=== PATIENT | female | born 1980 | race Hispanic/Latino ===

== ENCOUNTER 2020-12-24 07:29 | Day surgery (SDC) | payer OTHER ==
[2020-12-20 14:10] LABS: BASOPHILS % (AUTO) 0.8 % (0.0-5.0); EOSINOPHILS % (AUTO) 16.9 % (0.0-8.0); HEMATOCRIT 34.4 % (36-48); LYMPHOCYTES % (AUTO) 28.4 % (21.0-51.0); MEAN CORPUSCULAR HEMOGLOBIN 25.9 pg (27.0-33.0); MEAN CORPUSCULAR HGB CONC 31.4 g/dL (32.0-36.0); MEAN CORPUSCULAR VOLUME 82.5 fL (79-99); MONOCYTES % (AUTO) 5.4 % (3.0-13.0); NEUTROPHILS % (AUTO) 48.2 % (40.0-77.0); PLATELET COUNT (AUTO) 393 K/uL (130-400); RED BLOOD CELL COUNT(AUTO) 4.17 MIL/uL (4.00-5.50); RED CELL DISTRIBUTION WIDTH 16.7 % (11.0-15.5); WHITE BLOOD COUNT (AUTO) 6.5 K/uL (4.8-10.8)
[2020-12-20 14:13] VITALS: BP 125/69
[2020-12-20 14:15] LABS: CREATININE 0.7 mg/dL (0.5-1.5); POTASSIUM 3.9 mmol/L (3.5-5.1)
[~2020-12-24] VITALS: Ht 165.1 cm; Wt 91.4 kg
[2020-12-24] VITALS (18 sets, daily range): BP systolic 103–116; BP diastolic 56–83
[~2020-12-24 07:29] MED LIST: ACET1TAB25 PO; AZEL137S11 NS; CEFAZOLIN SODIUM 1 GM VIAL IVP SCH; CETI-89 PO; HYDR-4030 PO; IBUP-2077 PO; SERT-439 PO
[2020-12-24] MEDS ORDERED: LACTATED RINGERS 1000ML 1,000 ML IV ONE (08:27)
[2020-12-24] MEDS ORDERED: LIDOCAINE PF 100MG/5ML (2%) SYRINGE 5ML ONE (09:47)
[2020-12-24] MEDS ORDERED: FENTANYL CITRATE PF 50 MCG/1 ML 2ML VIAL ONE (09:48)
[2020-12-24] MEDS ORDERED: PROPOFOL 10 MG/ML 20ML VIAL IV ONE (09:48)
[2020-12-24] MEDS ORDERED: SUCCINYLCHOLINE CHLORIDE 20 MG/ML 10 ML VIAL ONE (10:24)
[2020-12-24] MEDS ORDERED: GLYCOPYRROLATE 1 MG/5 ML SYRINGE ONE (10:24)
[2020-12-24] MEDS ORDERED: MEPERIDINE-PF 25 MG/ML SYG ONE (10:51)
[2020-12-24] MEDS ORDERED: ONDANSETRON 4MG INJ ONE (10:51)
[2020-12-24] MEDS ORDERED: KETOROLAC 30MG VIAL (30MG/ML) ONE (10:51)
== END 2020-12-24 13:26 | disposition home or self-care (01) ==
LOC: DAH 07:29
PROVIDERS: ATTEND Orthopaedic Surgery
DX: M23.321 Other meniscus derangements, posterior horn of medial meniscus, right knee (principal); Z20.822 Contact with and (suspected) exposure to COVID-19; M94.8X6 Other specified disorders of cartilage, lower leg; M22.41 Chondromalacia patellae, right knee; E66.9 Obesity, unspecified; F41.9 Anxiety disorder, unspecified; F32.9 Major depressive disorder, single episode, unspecified; Z68.33 Body mass index [BMI] 33.0-33.9, adult; Z79.899 Other long term (current) drug therapy; Z98.890 Other specified postprocedural states
CPT/HCPCS: 29879; 29881; 36415; 80048; 84703; 85025; 87635; A4215; A4221; A4222; A4223; A4606; A4649 ×3; A4663; A6223; C9803; J0330; J0690; J1885; J2001; J2175; J2405; J2704; J3010; J3490; J7120